=== PATIENT | female | born 1970 | race Caucasian/White ===

== ENCOUNTER → 2016-10-13 14:03 | Outpatient (CLI) | payer BC ==
[~2016-10-13 14:03] MED LIST: HYDROCODONE-APA1 TAB PO
[2016-10-31 06:54] VITALS: BMI 20.2
== END | disposition home or self-care (01) ==
LOC: D.LABREF 14:03
DX: L02.214 Cutaneous abscess of groin (principal)

== ENCOUNTER 2016-10-31 05:59 | Day surgery (SDC) | payer BC ==
[~2016-10-31] VITALS: Ht 160 cm; Wt 51.7 kg
[2016-10-31 06:54] VITALS: BP 122/73; Ht 160 cm; Wt 51.7 kg
[2016-10-31 07:31] LABS: HEMOGLOBIN 15.4 g/dL (12-16); MCH 33.1 pg (26.0-34.0); MCHC 33.5 g/dL (31.0-37.0); MCV 98.9 fL (80.0-100.0); MEAN PLATELET VOLUME 10.2 fL (7.4-10.4); RBC 4.65 10x6/uL (4.00-5.40); RDW 12.8 % (11.5-14.5); WBC 3.5 10x3/uL (4.8-10.8)
[2016-10-31] MEDS ORDERED: HYDROCODONE-APA1 TAB PO (08:21)
--- NOTE | 2016-10-31 08:43 | NUR ---
PRE OP BP 98/58
--- NOTE | 2016-10-31 10:10 | NUR ---
DAUGHTER HERE. DISCHARGE INSTRUCTIONS AND RX GIVEN.
--- NOTE | 2016-10-31 10:15 | NUR ---
DISCHARGED HOME VIA .
--- NOTE | 2016-11-07 16:25 | OP ---
PATIENT NAME: BRONSON COLLINS MEDICAL RECORD: [id number] :68 LOCATION:[facility] ADMISSION DATE: SURGEON: STEW CALLEJAS MD DATE OF OPERATION: 10/31/2016 PREOPERATIVE DIAGNOSIS: Left labial cyst. POSTOPERATIVE DIAGNOSIS: Left labial cyst. PROCEDURE: Excision of less than 1 cm left labial cyst. SURGEON: Stew Callejas MD. REPORT OF PROCEDURE: The patient's labial region was prepped and draped in sterile fashion. There was a small firm cyst in the anterior and superior aspect of the left labial region. An ovoid incision, totaling a length of 1.2 cm was made overlying the cyst, then a cyst was removed, it was quite small. The surrounding tissue was normal fatty tissue. We treated the area with electrocautery to stop any bleeding that was present and then irrigated out the wound with normal saline. A 3-0 Vicryl was used to close the subcutaneous tissue and a running 5-0 Monocryl was used to close the skin. A total of 9 cc of 0.25% Marcaine with epinephrine was infused into the surrounding tissues and the wound was dressed with a Band-Aid. COMPLICATIONS: None. CONDITION: Stable. ANESTHESIA: General endotracheal and local. BLOOD LOSS: Minimal. TRANSINT:[id number] Voice Confirmation ID: [id number] DOCUMENT ID: [id number] STEW CALLEJAS MD at 1625 CC: MARY ANDINO MD [id number] DICTATION DATE: 10/31/16 0823 BANK COMPLIANCE OFFICER: 10/31/16 1127 [facility] 10/31/[address] [address]
== END 2016-10-31 10:15 | disposition home or self-care (01) ==
LOC: D.OPS 05:59 → D.PAN 07:30 → D.OPS 10:15 → D.PAN 11:30 → D.OPS 13:45
PROVIDERS: Anesthesiology
DX: N90.7 Vulvar cyst (principal)

== ENCOUNTER 2017-04-08 05:55 | Day surgery (SDC) | payer BC ==
[2017-04-03 12:36] LABS: BASOPHILS 1.3 % (0-2); HEMATOCRIT 47.1 % (36.0-48.0); LYMPHOCYTES 37.5 % (15-50); MCH 34.3 pg (26.0-34.0); MCV 100.9 fL (80.0-100.0); MEAN PLATELET VOLUME 10.1 fL (7.4-10.4); MONOCYTES 12.5 % (2-11); NEUTROPHILS 43.7 % (40-80); PLATELET COUNT 247 10x3/uL (130-400); RBC 4.67 10x6/uL (4.00-5.40); RDW 12.5 % (11.5-14.5); WBC 3.2 10x3/uL (4.8-10.8)
[2017-04-03 12:55] LABS: CALC OSMOLALITY 280 mosm/kg (275-300); CALCIUM 9.4 mg/dL (8.5-10.1); CARBON DIOXIDE 30.1 mmol/L (21.0-32.0); CHLORIDE - SERUM 102 mmol/L (98-107); CREATININE - SERUM 0.7 mg/dL (0.6-1.3); GLUCOSE 125 mg/dL (74-106); POTASSIUM - SERUM 4.5 mmol/L (3.5-5.1); SODIUM 140 mmol/L (136-145); UREA NITROGEN 15 mg/dL (7-18); eGFR NON AFRICAN AMERICAN > 90 mL/min (90-120)
[~2017-04-08] VITALS: Ht 160 cm; Wt 49.9 kg
[2017-04-08 07:07] VITALS: BP 124/82; Ht 160 cm; Wt 49.9 kg
== END 2017-04-08 12:10 | disposition home or self-care (01) ==
LOC: D.OPS 05:55 → D.PAN 08:15 → D.OPS 12:10
PROVIDERS: Obstetrics & Gynecology
DX: L02.214 Cutaneous abscess of groin (principal); L02.215 Cutaneous abscess of perineum; L90.5 Scar conditions and fibrosis of skin; Z01.812 Encounter for preprocedural laboratory examination

== ENCOUNTER 2018-10-25 08:00 | Outpatient (CLI) | payer BC ==
[~2018-10-25] VITALS: Ht 160 cm; Wt 52.3 kg
[2018-10-25 09:23] VITALS: BP 115/73; Ht 160 cm; Wt 52.3 kg
--- NOTE | 2018-10-25 10:12 | NUR ---
0900-IV SITED TO R AC X 1 22G. 0910-RECLAST INFUSION STARTED PER PUMP 41-INFUSION COMPLETE, IV D/C. 45-DC INSTRUCTIONS REVIEWED. 50-D/C HOME. STATES HAS HAD RECLAST IN THE PAST WITHOUT PROBLEMS.
== END 2018-10-25 09:50 | disposition home or self-care (01) ==
LOC: D.OPS 08:00
DX: M81.0 Age-related osteoporosis without current pathological fracture (principal); Z01.812 Encounter for preprocedural laboratory examination